=== PATIENT | male | born 1965 | race Caucasian/White ===

== ENCOUNTER 2024-11-22 16:50 | Emergency (ER) | payer OTHER ==
[~2024-11-22] VITALS: Ht 177.8 cm; Wt 93.0 kg
[2024-11-22] MEDS ORDERED: Oxymetazoline 0.05% Nasal Relief Spray 15mL BTL ONE (17:35)
[2024-11-22] MEDS ORDERED: Lactated Ringer's 1,000 ML IV ONE (18:35)
[2024-11-22 19:10] LABS: International Normalized Ratio 1.04; Prothrombin Time Results 11.1 Sec (9.7-11.5)
[2024-11-22 19:22] LABS: BASOPHILS PERCENT AUTO 1 % (0-2); EOSINOPHILS ABSOLUTE AUTO 0.11 K/mm3 (0.00-0.68); EOSINOPHILS PERCENT AUTO 1 % (0-6); Hemoglobin 13.3 g/dL (13.5-17.5); IMMATURE GRAN ABSOLUTE AUTO 0.08 K/mm3 (0.00-0.10); IMMATURE GRAN PERCENT AUTO 1 % (0-1); LYMPHOCYTES ABSOLUTE AUTO 1.37 K/mm3 (0.84-5.20); LYMPHOCYTES PERCENT AUTO 9 % (21-46); MONOCYTES ABSOLUTE AUTO 0.96 K/mm3 (0.16-1.47); MONOCYTES PERCENT AUTO 6 % (4-13); Mean Corpuscular HGB 32.3 pg (26.0-34.0); Mean Corpuscular Volume 92 fL (80-100); Mean Platelet Volume 9.9 fL (9.1-12.4); NEUTROPHILS ABSOLUTE AUTO 12.94 K/mm3 (1.96-9.15); NEUTROPHILS PERCENT AUTO 83 % (41-73); Platelet Count 272 K/mm3 (150-400); RDW Coefficient Variation 12.1 % (11.7-14.2); RDW Standard Deviation 41.1 fL (35.1-46.3); Red Blood Cell Count 4.12 M/mm3 (4.30-5.90); White Blood Cell Count 15.56 K/mm3 (4.00-11.30)
[2024-11-22 20:25] VITALS: BP 98/72
== END 2024-11-22 20:31 | disposition home or self-care (01) ==
LOC: ER 16:50
PROVIDERS: Student in an Organized Health Care Education/Training Program
DX: R04.0 Epistaxis (principal); I10 Essential (primary) hypertension
CPT/HCPCS: 30901; 85025; 85610; 85730; 96360-59; 96361-59; 99283-25; A9270; J7120

== ENCOUNTER 2024-11-24 12:20 | Emergency (ER) | payer OTHER ==
[~2024-11-24] VITALS: Ht 177.8 cm; Wt 93.0 kg
[2024-11-24 12:53] VITALS: BP 107/79
[2024-11-24] MEDS ORDERED: Tranexamic Acid 100 ML IV ONE (13:05)
[2024-11-24] MEDS ORDERED: Tranexamic Acid 1000 MG/10 ML 10ML Vial (SDV) ONE (13:05)
[2024-11-24] MEDS ORDERED: Oxymetazoline 0.05% Nasal Relief Spray 15mL BTL ONE (13:05)
== END 2024-11-24 14:25 | disposition home or self-care (01) ==
LOC: ER 12:20
DX: R04.0 Epistaxis (principal); I10 Essential (primary) hypertension
CPT/HCPCS: 30903; 99282-25; A9270

== ENCOUNTER 2025-04-04 07:34 | Day surgery (SDC) | payer OTHER ==
[2025-04-04] VITALS (18 sets, daily range): BP systolic 109–147; BP diastolic 73–109
[~2025-04-04] VITALS: Ht 177.8 cm; Wt 95.0 kg
[2025-04-04] MEDS ORDERED: AMLODIPINE BESY10 MG PO (07:47)
[2025-04-04] MEDS ORDERED: CARVEDILOL12.5 MG PO (07:47)
[2025-04-04] MEDS ORDERED: HYDCHL25 PO (07:48)
[2025-04-04] MEDS ORDERED: LISI20 PO (07:49)
[2025-04-04] MEDS ORDERED: POTA10T PO (07:49)
[2025-04-04] MEDS ORDERED: DOXA4 PO (07:50)
--- NOTE | 2025-04-04 08:42 | NUR ---
04/04/25 0842 Clarita Bravo CONFIRMED AND REVIEWED H&P, MEDCICATIONS, ALLERGIES, MEDICAL HISTORY, RESPIRATORY HISTORY, VITAL SIGNS, 3-LEAD EKG, CONSENTS, AND PHYSICIAN ORDERS. PATIENT CONFIRMS NPO STATUS AND AGREES WITH SCHEDULED PROCEDURE. MONITOR INTACT WITH CONTINUOUS PULSE OXIMETRY, CAPNOGRAPHY, 3-LEAD EKG, INTERMITTENT BP. SUPPLEMENTAL O2 TO BE TITRATED THROUGHOUT PROCEDURE TO MAINTAIN O2 SATURATION ABOVE 90%. PATIENT DETERMINED TO BE ASA APPROPRIATE FOR PROPOFOL SEDATION PRIOR TO START OF PROCEDURE BY .MALLAMPATI CLASS 3 AIRWAY: VISUALIZATION OF ONLY THE BASE OF THE [place].MALLAMPATI CLASS 2 AIRWAY: COMPLETE VISUALIZATION OF THE [place].
[2025-04-04] MEDS ORDERED: Midazolam HCl 1MG / ML 2ML Vial ONE (08:44)
== END 2025-04-04 09:40 | disposition home or self-care (01) ==
LOC: ORSCMMR 07:34 → ORD 08:30 → ORSCMMR 08:30
DX: Z01.89 Encounter for other specified special examinations (principal); Z86.0100 Personal history of colon polyps, unspecified
CPT/HCPCS: 88305; J0461; J2250; J2704; J7120